=== PATIENT | female | born 1995 | race Two or more races ===

== ENCOUNTER 2021-03-24 12:11 | Emergency (ER) | payer MEDICAID, OTHER ==
[~2021-03-24] VITALS: Ht 160 cm; Wt 63.0 kg
[2021-03-24 14:51] LABS: COVID AG,FIA SOURCE NASOPHARYNGEAL
[2021-03-24 19:00] VITALS: BP 116/75
== END 2021-03-24 20:03 | disposition home or self-care (01) ==
LOC: EMS 12:13
DX: S80.811A Abrasion, right lower leg, initial encounter (principal); Z77.028 Contact with and (suspected) exposure to other hazardous aromatic compounds; Z20.822 Contact with and (suspected) exposure to COVID-19; W22.8XXA Striking against or struck by other objects, initial encounter; Y93.89 Activity, other specified; Y92.89 Other specified places as the place of occurrence of the external cause; Y99.8 Other external cause status
CPT/HCPCS: 71046; 87426; 99285